=== PATIENT | female | born 1995 | race Caucasian/White ===

== ENCOUNTER 2018-12-14 06:53 | Emergency (ER) | payer SELFPAY, MEDICAID ==
[2018-12-14] MEDS: ACETAMINOPHEN 500 MG TAB PO (08:05)
[2018-12-14 08:11] LABS: URINE BLOOD (Dip) POC Trace-intact (NEGATIVE); URINE GLUCOSE (Dip) POC Negative (NEGATIVE); URINE KETONES (Dip) POC Negative (NEGATIVE); URINE LEUKOCYTE EST (Dip) POC Negative (NEGATIVE); URINE NITRITE (Dip) POC Negative (NEGATIVE); URINE TOTAL PROTEIN POC Negative (NEGATIVE)
[2018-12-14 08:11] LABS: URINE PH (Dip) POC 5.5 (5.0-8.5)
== END 2018-12-14 08:35 | disposition home or self-care (01) ==
LOC: FTE 06:53
DX: R51 Headache (principal)
CPT/HCPCS: 81003; 81025; 99282